=== PATIENT | female | born 1970 | race Caucasian/White ===

== ENCOUNTER → 2016-10-19 | Outpatient (CLI) | payer BC ==
[~2016-10-19] MED LIST: DAILY VITAMINS1 TAB PO; METFORMIN500 MG PO
== END | disposition home or self-care (01) ==
LOC: MAMMO 11:02
DX: Z12.31 Encounter for screening mammogram for malignant neoplasm of breast (principal)

== ENCOUNTER → 2017-08-28 | Outpatient (CLI) | payer BC ==
[2017-08-28 08:53] LABS: THYROXINE (T4) TOTAL 6.7 ug/dl (4.8-13.9)
== END | disposition home or self-care (01) ==
LOC: LAB 07:14
PROVIDERS: Family Medicine
DX: E04.9 Nontoxic goiter, unspecified (principal)

== ENCOUNTER → 2017-09-20 | Outpatient (CLI) | payer BC | END | disposition home or self-care (01) | LOC: LAB 08:38 | PROVIDERS: Family Medicine | DX: E04.9 Nontoxic goiter, unspecified (principal) ==

== ENCOUNTER → 2017-10-25 | Outpatient (CLI) | payer BC ==
[2017-10-25 15:42] LABS: THYROXINE (T4) TOTAL 14.5 ug/dl (4.8-13.9)
[2017-10-25 15:47] LABS: THYROID STIM HORMONE (HS) 1.2 uIU/ml (0.358-4.75)
== END | disposition home or self-care (01) ==
LOC: LAB 15:07
PROVIDERS: Family Medicine
DX: E04.9 Nontoxic goiter, unspecified (principal)

== ENCOUNTER → 2017-12-06 | Outpatient (CLI) | payer BC ==
[2017-12-06 15:56] LABS: FREE T4 1.33 ng/dl (0.76-1.46)
[2017-12-06 16:01] LABS: THYROID STIM HORMONE (HS) 0.227 uIU/ml (0.358-4.75)
== END | disposition home or self-care (01) ==
LOC: LAB 15:20
PROVIDERS: Internal Medicine Endocrinology, Diabetes & Metabolism
DX: E04.9 Nontoxic goiter, unspecified (principal); E04.2 Nontoxic multinodular goiter

== ENCOUNTER → 2018-01-24 | Outpatient (CLI) | payer BC ==
[2018-01-24 16:07] LABS: THYROXINE (T4) TOTAL 12.9 ug/dl (4.8-13.9)
[2018-01-24 16:13] LABS: THYROID STIM HORMONE (HS) 1.17 uIU/ml (0.358-4.75)
== END ==
LOC: LAB 15:07
PROVIDERS: Family Medicine
DX: E03.9 Hypothyroidism, unspecified (principal)

== ENCOUNTER → 2018-11-19 | Outpatient (CLI) | payer BC ==
[2018-11-19 16:51] LABS: FREE T4 1.15 ng/dl (0.76-1.46)
[2018-11-19 16:56] LABS: THYROID STIM HORMONE (HS) 4.97 uIU/ml (0.358-4.75)
== END | disposition home or self-care (01) ==
LOC: LAB 15:16
PROVIDERS: Internal Medicine Endocrinology, Diabetes & Metabolism
DX: E89.0 Postprocedural hypothyroidism (principal)

== ENCOUNTER → 2019-06-04 | Outpatient (CLI) | payer BC ==
[2019-06-04 16:37] LABS: FREE T4 1.03 ng/dl (0.76-1.46)
[2019-06-04 16:42] LABS: THYROID STIM HORMONE (HS) 6.46 uIU/ml (0.358-4.75)
== END | disposition home or self-care (01) ==
LOC: LAB 15:22
PROVIDERS: Internal Medicine Endocrinology, Diabetes & Metabolism
DX: E89.0 Postprocedural hypothyroidism (principal)

== ENCOUNTER → 2019-10-05 | Outpatient (CLI) | payer BC ==
[2019-10-05 17:05] LABS: FREE T4 1.26 ng/dl (0.76-1.46)
[2019-10-05 17:10] LABS: THYROID STIM HORMONE (HS) 0.597 uIU/ml (0.358-4.75)
== END | disposition home or self-care (01) ==
LOC: LAB 15:42
PROVIDERS: Internal Medicine Endocrinology, Diabetes & Metabolism
DX: E89.0 Postprocedural hypothyroidism (principal)

== ENCOUNTER → 2019-11-13 | Outpatient (CLI) | payer BC ==
[2019-11-13 15:41] LABS: FREE T4 1.12 ng/dl (0.76-1.46)
[2019-11-13 15:46] LABS: THYROID STIM HORMONE (HS) 1.38 uIU/ml (0.358-4.75)
== END | disposition home or self-care (01) ==
LOC: LAB 15:03
PROVIDERS: Internal Medicine Endocrinology, Diabetes & Metabolism
DX: E89.0 Postprocedural hypothyroidism (principal)

== ENCOUNTER → 2020-08-18 | Outpatient (CLI) | payer BC ==
[2020-08-18 07:41] LABS: ALBUMIN 3.7 gm/dl (3.1-4.5); ALKALINE PHOSPHATASE 71 U/L (45-117); BUN 18 mg/dl (7-24); CHLORIDE 107 mmol/L (98-107); CHOLESTEROL 161 mg/dL (<200); CREATININE 0.92 mg/dL (0.55-1.02); HDL CHOLESTEROL 37 mg/dl (40-60); LDL CHOLESTEROL 73 mg/dL (9-159); POTASSIUM 4.3 mmol/L (3.5-5.1); SGOT/AST 18 IU/L (3-35); SGPT/ALT 21 U/L (12-78); SODIUM 142 mmol/L (136-145); TOTAL PROTEIN 7.5 gm/dL (6.4-8.2); TRIGLYCERIDES 254 mg/dl (<150); VLDL CHOLESTEROL 51 mg/dL (6-40)
[2020-08-18 07:46] LABS: FREE T4 1.43 ng/dl (0.76-1.46); THYROID STIM HORMONE (HS) 0.362 uIU/ml (0.358-4.75)
== END | disposition home or self-care (01) ==
LOC: LAB 06:26
PROVIDERS: ATTEND Family Medicine
DX: E11.9 Type 2 diabetes mellitus without complications (principal); E03.9 Hypothyroidism, unspecified; E66.9 Obesity, unspecified; E55.9 Vitamin D deficiency, unspecified

== ENCOUNTER → 2020-08-22 | Outpatient (CLI) | payer BC | END | disposition home or self-care (01) | LOC: MAMMO 00:37 | PROVIDERS: ATTEND Family Medicine | DX: Z12.31 Encounter for screening mammogram for malignant neoplasm of breast (principal) ==